=== PATIENT | female | born 1970 | race Caucasian/White ===

== ENCOUNTER 2020-10-17 11:07 | Emergency (ER) | payer OTHER ==
[~2020-10-17] VITALS: Ht 165.1 cm; Wt 102.1 kg
[2020-10-17 11:18] VITALS: BP_SYST 149
[2020-10-17 11:34] LABS: BILIRUBIN,URINE 1+ (NEGATIVE); BLOOD, URINE 3+ (NEGATIVE); GLUCOSE,URINE NEGATIVE (NEGATIVE); KETONES,URINE NEGATIVE (NEGATIVE); LEUKOCYTE ESTERASE ,URINE 2+ (NEGATIVE); NITRITE, URINE POSITIVE (NEGATIVE); PH,URINE 6.5 (5.0-8.0); PROTEIN URINE 3+ (NEGATIVE)
[2020-10-17 11:35] LABS: CLARITY/URINE CLOUDY (CLEAR); COLOR,URINE BROWN (YELLOW)
[2020-10-17] MEDS ORDERED: NITR-85 PO (11:43)
[2020-10-17] MEDS ORDERED: PHEN-890 PO (11:43)
[2020-10-17 11:45] LABS: BACTERIA,URINE FEW /HPF (None Seen); RBC,URINE >100 /HPF (0-3)
[2020-10-17 11:46] LABS: MUCUS,URINE 1+ /LPF (None Seen)
[2020-10-17 11:52] VITALS: BP_SYST 149
== END 2020-10-17 11:50 | disposition home or self-care (01) ==
LOC: SED 11:07
DX: N39.0 Urinary tract infection, site not specified (principal); Z79.899 Other long term (current) drug therapy
CPT/HCPCS: 81000-TC; 87086; 99283